=== PATIENT | female | born 1950 | race Caucasian/White ===

== ENCOUNTER 2024-08-02 15:06 | Emergency (ER) | payer MEDICARE, OTHER, SELFPAY ==
[2024-08-02 15:10] VITALS: BP 146/72; BMI 23.7
[2024-08-02 15:11] VITALS: BP 146/72
--- NOTE | 2024-08-02 15:16 | ED.GENMED ---
History of Present Illness
General
Chief Complaint: Abdominal Pain
Source: patient and ambulance crew
Exam Limitations: none
Time Seen by Provider: 08/02/24 15:14
History of Present Illness
History of Present Illness:
74yoF with a history of pancreatic cancer s/p Whipple procedure at [facility] [address] Perla presenting via EMS for evaluation of abdominal pain. Patient was discharged from [facility] yesterday evening. She reports waking up today with
severe abdominal pain. Pain is localized around the epigastric region and she states she feels a hardness in her abdomen. She took oxycodone without relief and called EMS. She reports nausea but denies any vomiting. She had a small bowel
movement earlier today and has been passing flatus. She denies any fevers, chest pain, shortness of breath.
Past History
Past History
ED Past Medical History: Cancer and Other (Previous breast cancer status post lumpectomy radiation and chemotherapy. Chronic back pain, hypertension)
ED Past Surgical History: Other (lumpectomy)
Social History
Tobacco: Non-smoker
Alcohol: None
Drug: None
Personal:
Living: with family
Employment: Employed
Family History
Family History: Hypertension and CAD; Negative Early CAD
Phy Exam
Physical Exam
Physical Exam:
Chronically ill appearing female, non-toxic
General Physical Exam
General Presentation: no apparent distress
General Skin: warm and dry
General Habitus: elderly
General Mental: alert
ENT Exam
ENT Exam: normocephalic
Cardiovascular Exam
Cardiovascular Exam: regular rate/rhythm
Pulmonary Exam
Pulmonary Exam: no respiratory distress
Gastrointestinal Exam
Gastrointestinal Exam: soft, non distended and other (Surgical incision c/d/i with gonzález in place. +There is tenderness to the epigastric region surrounding the incision. Abdomen soft, non-distended. No rebound or guarding.)
Neurological Exam
Neurological Exam: alert
Sharmaine Coma Scale
Eye Opening: Spontaneous
Verbal Response: Oriented
Motor Response: Obeys Commands
GCS Total Score: 15
Skin Exam
Skin Exam: normal color and warm/dry
Psychiatric Exam
Psychiatric Exam: normal mood/affect
Course
Orders/Labs/Results
Orders:
Orders
08/02/24 15:15
Electrocardiogram (*1) Urgent
Reason for Study: Abdominal Pain
EKG- Treatment ONCE
0.9% Sodium Chloride 500 ml [Nss] 500 ml IV BOLUS
HYDROmorphone [Dilaudid] 0.5 mg IV NOW STA
08/02/24 15:19
CT Abd/pel W Iv And Oral Contr Urgent
Comment:
Reason For Exam: epigastric pain, s/p Whipple 8 days ago
Iohexol [Omnipaque] See Protocol PO NOW STA
08/02/24 15:40
Complete Blood Count/With Diff Urgent
Comprehensive Metabolic Panel Urgent
Lipase Urgent
Troponin I Urgent
08/02/24 15:46
Ondansetron Injectable [Zofran] 4 mg IV NOW STA
08/02/24 19:43
Oxycodone [Roxicodone] 10 mg PO NOW STA
Abnormal Lab Results
08/02/24
15:40
RBC 2.94 L 10^6/uL
(4.20-5.40)
Hgb 9.7 L g/dL
(12.0-16.0)
Hct 28.5 L %
(37.0-47.0)
MCH 33.0 H pg
(27.0-31.0)
Plt Count 435 H 10^3/uL
(130-400)
Abs Immat Gran (auto) 0.1 H 10^3/uL
(0-0.05)
Absolute Monos (auto) 1.1 H 10^3/uL
(0.1-0.6)
Immature Gran % 0.6 H %
(0-0.5)
Monocytes % 12.2 H %
(1.7-9.3)
Sodium 134 L mmol/L
(135-145)
Chloride 96 L mmol/L
(98-107)
Glucose 114 H mg/dl
(70-99)
AST 136 H U/L
(14-36)
ALT 73 H U/L
(0-35)
Alkaline Phosphatase 200 H U/L
(38-126)
Lipase 13 L U/L
(23-300)
08/02/24 15:40
08/02/24 15:40
Vital Signs
Initial and Last Documented VS:
Initial Vital Signs
Temp Pulse Resp BP Pulse Ox
97.9 F 67 12 146/72 98
08/02/24 15:10 08/02/24 15:10 08/02/24 15:10 08/02/24 15:10 08/02/24 15:10
Last Documented Vital Signs
Temp Pulse Resp BP Pulse Ox
97.9 F 69 14 141/67 97
08/02/24 15:10 08/02/24 18:30 08/02/24 18:30 08/02/24 20:13 08/02/24 20:13
MDM/Problems Addressed
Differential Diagnosis Includes:
74yoF here with abd pain that woke her up today. Hx of Whipple procedure 8 days ago at [facility]. Discharged yesterday. No fevers or vomiting. She is mildly hypertensive with otherwise normal vitals. She is non-toxic appearing. Surgical incision
c/d/i without signs of infection. No abdominal distention or signs of peritonitis noted. Differential diagnosis includes but is not limited to: Postoperative pain, anastomotic leak, biloma, SBO, intra-abdominal infection
Initial ED plan: Check abdominal labs, troponin/EKG, and CT abdomen with IV and p.o. contrast. IV Dilaudid ordered for pain.
*EKG
Interpreted by ED Provider?: Yes
EKG Intrepretation Date: 08/02/24
Heart Rate: 65
Rate: normal
Rhythm: sinus
[place]: normal axis
Interval: normal interval
QRS Pattern: normal QRS
Ischemia: no ischemia
*Critical Care Note
Total Time (30-74mins, 75-104mins- exclusive of procedures): Not Applicable
Update Note
Update Note:
Labs reveal a mild transaminitis. White count and lipase normal. EKG shows normal sinus rhythm without ischemic changes and troponin within normal limits. I called and spoke with Dr. Rushing, on-call surg/onc fellow at [facility]. Labs including
hemglobin/LFTs are stable compared to prior labs. Per Dr. Rushing, CT is likely to show some inflammation/fluid around surgical site. Main concern would be looking for biloma, intrahepatic biliary dilatation, or anastomotic leak on CT. If imaging
shows normal postoperative changes, she may be discharged with outpatient f/u.
CT shows 'Postoperative changes from recent Whipple procedure with some inflammatory fat stranding in the upper abdomen. No drainable intra-abdominal fluid collection appreciated. Mild fluid/edema in the midline lower anterior abdominal wall along
the incision site.' Pain controlled on reassessment and she is able to tolerate PO fluids/meds. No indication for hospitalization at this time. She was advised to f/u with her surgical team and ED return precautions discussed. Patient in agreement
with plan and was discharged in stable condition.
ED Attending Note
-
Portions of this chart may have been created with voice recognition software.� Occasional wrong word or��sound alike� substitutions may have occurred due to the inherent limitations of voice recognition software.
Discharge Plan
Departure
Patient Disposition: Home (Routine Discharge)
Date of Disposition: 08/02/24
Time of Disposition: 19:55
Patient with high blood pressure during this ER visit?: Yes
Discharge Problem:
Postoperative abdominal pain
Instructions: Abdominal Pain
Prescriptions:
No Action
losartan-hydrochlorothiazide 100 MG/25 MG tablet
1 tab PO DAILY
bupropion HCl 100 MG tablet
50 mg PO BID
alprazolam 0.5 MG tablet
0.5 mg PO Q6HPRN PRN (Reason: anxiety)
oxycodone 5 MG tablet
10 mg PO PRN PRN (Reason: pain)
duloxetine 60 MG capsule,delayed release(DR/EC)
60 mg PO DAILY
[id number] [Fiorinal] 1 CAP capsule
1 cap PO Q6HPRN PRN (Reason: pain)
Referrals:
NONE,* [Active] -
Activity Restrictions/Additional Instructions:
Please call your surgeon tomorrow for close follow-up. Return to the ER with any new or worsening symptoms.
Interventions
Interventions:
*Risk Screen - Suicide Last Done: 08/02/24 15:15
*General Assessment Last Done: 08/02/24 15:15
*Neglect/Abuse Screening Last Done: 08/02/24 15:15
ED- Fall Risk Assessment Last Done: 08/02/24 20:27
*ED COVID-19 Vaccine History Last Done: 08/02/24 15:15
*Nursing Disposition Last Done: 08/02/24 20:27
EP-Owyzud-Xfenupuccn Assessment Last Done: 08/02/24 15:15
Discharge Date and Time
Discharge Date/Time: 08/02/24 20:27
Print Language: RWANDAN
[2024-08-02] MEDS: DILAUDID 0.5 MG IV (15:42)
[2024-08-02] MEDS: NSS 500 IV (15:42)
[2024-08-02] MEDS: ZOFRAN 4 MG IV (15:48)
[2024-08-02] MEDS: OMNIPAQUE 50 ML PO (15:49)
[2024-08-02 15:55] LABS: % Basophils 0.5 % (0-2); % Eosinophils 4.8 % (0-6); % Immature Granulocytes 0.6 % (0-0.5); % Lymphocytes 24.8 % (20.5-51.1); % Monocytes 12.2 % (1.7-9.3); % Neutrophils 57.1 % (42.2-75.2); Absolute Eosinophils 0.4 10^3/uL (0-0.7); Absolute Immature Granulocytes 0.1 10^3/uL (0-0.05); Absolute Lymphocytes 2.1 10^3/uL (1.2-3.4); Absolute Monocytes 1.1 10^3/uL (0.1-0.6); Absolute Neutrophils 4.9 10^3/uL (1.4-6.5); Hematocrit 28.5 % (37.0-47.0); Hemoglobin 9.7 g/dL (12.0-16.0); Mean Corpuscular Volume 96.9 fL (81.0-99.0); Mean Platelet Volume 9.6 fL (7.4-10.4); Nucleated Red Blood Cells % 0 %; Platelet Count 435 10^3/uL (130-400); Red Blood Cell Count 2.94 10^6/uL (4.20-5.40); Red Cell Dist. Width 12.6 % (11.5-14.5); White Blood Cell Count 8.6 10^3/uL (4.8-10.8)
[2024-08-02 16:11] LABS: ALT (SGPT) 73 U/L (0-35); AST (SGOT) 136 U/L (14-36); Albumin 4.5 g/dl (3.5-5.0); Alkaline Phosphatase 200 U/L (38-126); Blood Urea Nitrogen 12 mg/dl (7-17); Calcium 10.1 mg/dl (8.4-10.2); Carbon Dioxide 27 mmol/L (22-30); Chloride 96 mmol/L (98-107); Estimated Creatinine Clearance 56 ml/min; Glucose 114 mg/dl (70-99); Potassium 4.3 mmol/L (3.5-5.1); Sodium 134 mmol/L (135-145); Total Bilirubin 1.1 mg/dl (0.2-1.3); Total Protein 6.6 g/dl (6.3-8.2); eGFR > 60.00
[2024-08-02 16:12] LABS: Lipase 13 U/L (23-300)
[2024-08-02 16:19] LABS: Troponin I < 0.012 ng/ml
[2024-08-02 16:54] VITALS: BP 149/71
[2024-08-02 17:00] VITALS: BP 137/75
[2024-08-02 18:00] VITALS: BP 148/74
[2024-08-02] MEDS: ROXICODONE 10 MG PO (19:57)
[2024-08-02 20:13] VITALS: BP 141/67
== END 2024-08-02 20:27 | disposition home or self-care (01) ==
LOC: EMR 15:06
PROVIDERS: Physician Assistant; EMERGENCY PHYSICIAN Emergency Medicine
DX: G89.18 Other acute postprocedural pain (principal); R10.9 Unspecified abdominal pain; I10 Essential (primary) hypertension
CPT/HCPCS: 99285; 96374; 96375; 96361; 74177; 80053; 83690; 84484; 85025; 93005; Q9967